=== PATIENT | male | born 1990 | race Caucasian/White ===

== ENCOUNTER → 2018-01-14 | Outpatient (REF) | LOC: M SMT 09:59 | DX: Z00.00 Encounter for general adult medical examination without abnormal findings (principal) ==

== ENCOUNTER → 2018-06-19 | Outpatient (REF) | payer OTHER | LOC: M LAB LCGH 13:08 | PROVIDERS: ATTEND Surgery | DX: H02.826 Cysts of left eye, unspecified eyelid (principal) ==